=== PATIENT | female | born 1935 | race Caucasian/White ===

== ENCOUNTER 2017-08-22 11:22 | Inpatient (IN) | payer MEDICARE ==
[2017-08-22] MEDS ORDERED: Nitroglycerin TAB 0.4 MG* 0.4 MG TAB SL ONE (12:04)
--- NOTE | 2017-08-22 12:51 | RAD ---
INDICATION: Chest pain. COMPARISON: Comparison is made with a prior study from April 04, 2014. TECHNIQUE: A portable view of the chest was obtained. FINDINGS: Cardiac and mediastinal contours appear to be within normal limits. The lungs are clear. No pleural effusion is seen. IMPRESSION: NO EVIDENCE FOR ACUTE DISEASE.
[2017-08-22 12:58] LABS: ABS Basophils 0 10^3/ul (0-0.2); ABS Eosinophils 0 10^3/ul (0-0.6); ABS Lymphocytes 0.8 10^3/ul (1.0-4.8); ABS Monocytes 0.3 10^3/ul (0-0.8); ABS Neutrophils 4.1 10^3/ul (1.5-7.7); ABS Nucleated RBC 0 10^3/ul; Eosinophil % 0.6 % (0-6); Hematocrit 35 % (35-47); Hemoglobin 11.8 g/dl (12.0-16.0); Lymphocyte % 15.2 % (25-47); Mean Corpuscular HGB Conc 34 g/dl (31-36); Mean Corpuscular Hemoglobin 29 pg (27-31); Mean Corpuscular Volume 86 fL (80-97); Mean Platelet Volume 7.4 um3 (7.4-10.4); Nucleated Red Blood Cells % 0.2; Platelet Count 217 10^3/ul (150-450); Red Blood Count 4.05 10^6/ul (4.0-5.4); Red Cell Distribution Width 15 % (10.5-15); White Blood Count 5.3 10^3/ul (3.5-10.8)
[2017-08-22 13:07] LABS: EGFR Non-African American 57.2 (>60)
[2017-08-22 13:09] LABS: INR 0.86 (0.77-1.02)
[2017-08-22] MEDS ORDERED: Nitroglycerin TAB 0.4 MG* 0.4 MG TAB SL PRN ×2 (14:03→18:20)
[2017-08-22] MEDS ORDERED: Aspirin 81 mg CHEW TAB* 81 MG TAB.CHEW PO ONE (14:03)
[2017-08-22] MEDS ORDERED: Metoprolol Tartrate IV* 1 MG/ML 5 ML VIAL IV ONE (14:03)
[2017-08-22] MEDS ORDERED: Acetaminophen TAB* 325 MG PO PRN (14:06)
[2017-08-22] MEDS ORDERED: Mouth Piece, Nicotine* 1 EACH CARTRIDGE INH PRN (14:06)
[2017-08-22] MEDS ORDERED: Ondansetron INJ* 2 MG/ML VIAL IV PRN (14:06)
[2017-08-22] MEDS ORDERED: Famotidine TAB* 20 MG PO PRN (14:09)
[2017-08-22] MEDS ORDERED: Heparin DRIP 25,000 UNITS(*) 25,000 UNITS/500 ML BAG IV SCH (14:15)
[2017-08-22] MEDS ORDERED: Heparin VIAL(*) 5000 UNITS/ML VIAL (FIVE THOUSAND) IV SCH (15:00)
[2017-08-22] MEDS ORDERED: fentaNYL* 50 MCG/ML 2 ML VIAL (100 MCG VIAL) ONE (16:13)
[2017-08-22] MEDS ORDERED: Midazolam* 1 MG/ML 10 ML VIAL (10 MG) ONE (16:13)
[2017-08-22] MEDS ORDERED: nitroGLYCERIN DRIP* 25,000 MCG/250 ML BTL ONE ×2 (16:14→16:46)
[2017-08-22] MEDS ORDERED: Heparin 2 UNITS/ML IVPREMIX* 3,000 ML IV ONE (16:14)
[2017-08-22] MEDS ORDERED: Iodixanol* (CONTRAST) 320 MG/ML 100 ML SDV ONE ×3 (16:14→17:47)
[2017-08-22] MEDS ORDERED: Lidocaine 1% INJ* 10 MG/ML 30 ML SDV ONE (16:14)
[2017-08-22] MEDS ORDERED: VERAPAMIL 2.5 MG/ML 2 ML VIAL ** 5 mg/2 ml ONE (16:15)
[2017-08-22] MEDS ORDERED: Heparin(*) 1000 UNIT/ML 10 ML VIAL CATH LAB IV ONE (16:15)
--- NOTE | 2017-08-22 16:16 | ED ---
Darnell Michele Angela, scribed for Tucker Gonzalez on 08/22/17 at 1542 . Progress - Progress Note Progress Note: This pt was signed out by Dr. Amos, pending disposition, awaiting lab work. Blood work, chest XR, and EKG obtained. Chest XR is negative. Troponin is 0.58. EKG shows ST depressions. I discussed pt care with Dr. James, hospitalist, who has agreed to admit the pt. Dr. Patel consulted on the pt. Pt will be admitted to [facility] in stable condition. Re-Evaluation - Re-Evaluation First Eval Re-Evaluation Time: 13:26 Comment: I reviewed the lab results with the pt. Plan is to admit the pt. She understands and agrees Second Eval Comment: Dr. Patel, manager media relations, in to evaluate the pt. Course/Dx - Diagnoses Provider Diagnoses: NSTEMI (non-ST elevated myocardial infarction) - Provider Notifications Discussed Care Of Patient With: Cortez James Time Discussed With Above Provider: 13:27 Instructed by Provider To: Other - I discussed pt care with Dr. James, hospitalist, who has agreed to admit the pt. Discharge - Sign-Out/Discharge Documenting (check all that apply): Discharge/Admit/Transfer - admit to [facility] - Discharge Plan Condition: Stable Disposition: ADMITTED TO [facility] The documentation as recorded by the Darnell de la cruz Angela accurately reflects the service I personally performed and the decisions made by , Tucker Gonzalez.
--- NOTE | 2017-08-22 16:25 | ECHO ---
Patient: ERICKA TURNER [facility] Rec#: [id number] : 1935 Date: 08/22/2017 Age: 82y Height: 160.02 cm / 63.0 in Weight: 58.06 kg / 128.0 lbs Sex: F BSA: 1.6 Room#: 15 Admit Date#: 08/22/2017 Type: Inpatient Referring: Cortez James MD Reading: Micki Patel MD Group Home Counselor: Wendie Arthur,DORENECS,RDMS CC: Maxine Dunaway MD Transthoracic Echocardiogram Indication: Acute coronary syndrome BP: 124/51 HR: 77 Rhythm: NSR with PVCs Findings History: TIA, HTN, HLD, PCI, smoker Technical Comments: The study quality is fair. The study is technically limited due to poor parasternal windows. Left Ventricle: The left ventricular chamber size is normal. Mild concentric left ventricular hypertrophy is observed.The septum is relatively echo bright. There is a focal wall motion abnormality present.Relative hypokinesis of the inferior/posterior wall seen at 4-5 oclock on short axis view and mid was on 3 chamber view extending towards apex and base. The estimated ejection fraction is 50-55%. Abnormal left ventricular diastolic filling is observed, consistent with impaired relaxation. Left Atrium: The left atrial chamber size is normal. Right Ventricle: The right ventricular chamber size and systolic function are within normal limits. The right ventricle wall thickness is moderately increased. Right Atrium: The right atrial cavity size is normal. Aortic Valve: The aortic valve is trileaflet. The aortic valve leaflets are moderately thickened. There is mild to moderate aortic regurgitation. There is mild aortic stenosis. The mean gradient of the aortic valve is 7.5 mmHg. The aortic valve area, by peak velocities, is calculated at 1.9 cm2. The highest aortic valve velocity was obtained with the standard probe from the A5C view. Mitral Valve: There is mitral annular calcification. The mitral valve leaflets are mildly thickened. There is a trace of mitral regurgitation. There is no evidence of mitral stenosis. Tricuspid Valve: The tricuspid valve leaflets are normal. There is trace tricuspid regurgitation. Unable to estimate the right ventricular systolic pressure. Pulmonic Valve: The pulmonic valve structure is not well visualized. There is no evidence of pulmonic regurgitation. Pericardium: There is no significant pericardial effusion. Aorta: There is no dilatation of the aortic arch. The aortic root is not well visualized. Pulmonary Artery: The main pulmonary artery is not well visualized. Venous: The inferior vena cava appears normal in size. There is a greater than 50% respiratory change in the inferior vena cava dimension. Conclusions The study is technically limited due to poor parasternal windows. Mild concentric left ventricular hypertrophy is observed, septum is echo bright. Focal area of hypokinesis of the posterior wall, see text. The estimated ejection fraction is 50%. Abnormal left ventricular diastolic filling is observed, consistent with impaired relaxation. The right ventricle wall thickness is moderately increased. The right ventricular chamber size and systolic function are within normal limits. The aortic valve leaflets are moderately thickened. There is mild to moderate aortic regurgitation. There is mild aortic stenosis. The mean gradient of the aortic valve is 7.5 mmHg. There is a trace of mitral regurgitation. There is trace tricuspid regurgitation. Compared with prior echo report of 2014, wall motion abnormality is new. Measurements Name Value Normal Range RVDdMajor (2D) 2.5 cm (2.2 - 4.4) RAd ISD 4CH 4.3 cm (3.4 - 4.9) RA (A4C)W 3.7 cm (2.9 - 4.6) IVSd (2D) 1.1 cm (0.6 - 1) LVPWd (2D) 1.1 cm (0.6 - 1) LVIDd (2D) 3.5 cm (3.6 - 5.4) LVIDs (2D) 2.4 cm - LV FS (2D) 31 % (25 - 45) Aortic arch 2.1 cm (1.8 - 3.4) LA dimension (AP) 2D 3 cm (2.3 - 3.8) LAd ISD 4CH 4.9 cm (2.9 - 5.3) LA ISD 4CH W 4.1 cm (2.5 - 4.5) Name Value Normal Range LA ESV SP 4CH (A/L) 38.39 ml - LA ESV SP 2CH (A/L) 50.68 ml - LA ESV BP (A/L) 45.41 ml - LA ESV BP (A/L) index 28 ml/m2 - LA ESV SP 4CH (MOD) 36.72 ml - LA ESV SP 2CH (MOD) 48.14 ml - Name Value Normal Range MV E-wave Vmax 0.9 m/sec - MV deceleration time 184 msec - MV A-wave Vmax 1.1 m/sec - MV E:A ratio 0.8 ratio - P. vein S-wave Vmax 0.5 m/sec - P. vein D-wave Vmax 0.4 m/sec - P. vein S:D Vmax ratio 1.2 ratio - P. vein A-wave duration 111 msec - LV septal e' Vmax 0.07 m/sec - LV lateral e' Vmax 0.08 m/sec - LV E:e' septal ratio 13 ratio - LV E:e' lateral ratio 11 ratio - Name Value Normal Range AV Vmax 2 m/sec - AV VTI 40 cm - AV peak gradient 16 mmHg - AV mean gradient 7.5 mmHg - LVOT diameter 2 cm - LVOT Vmax 1.2 m/sec - LVOT VTI 27 cm - LVOT peak gradient 6 mmHg - LVOT mean gradient 3 mmHg - DOI (VTI) 0.7 ratio - TRAVIS (continuity Vmax) 1.9 cm2 - TRAVIS (continuity VTI) 2.1 cm2 - AR PHT 453.29 msec - AR peak gradient 51.53 mmHg - DAYANA Vmax 0.4 m/sec - Name Value Normal Range RAP 8 mmHg - IVC diameter 0.8 cm - Name Value Normal Range PV Vmax 0.9 m/sec - PV peak gradient 3.2 mmHg -
[2017-08-22] MEDS ORDERED: Ticagrelor* 90 MG TAB PO ONE (17:02)
--- NOTE | 2017-08-22 17:12 | HP ---
CC: Dr. Maxine Dunaway; Champ James MD* ADMISSION HISTORY AND PHYSICAL: DATE OF ADMISSION: 08/22/17. PRIMARY CARE PROVIDER: Dr. Maxine Dunaway. MY ATTENDING WHILE IN THE HOSPITAL: Champ James MD* (dictated by GHAZALA Mayen). CHIEF COMPLAINT: Chest pain. HISTORY OF PRESENT ILLNESS: Ms. Garsia is an 82-year-old female with past medical history significant for hypertension, hyperlipidemia, MS, status post stent in 2002, gastric cancer status post resection, who started having chest pain around 11:00 p.m. last night waking her up from sleep. She states this pain was a pressure in the center of her chest without associated symptoms. This lasted for approximately 2-1/2 hours, and since she was able to go back to bed, the patient woke up in the morning and felt fine. Patient took all of her morning medications. The patient takes her aspirin at night. The patient then started feeling the same pressure in the center of her chest with associated shortness of breath, nausea and vomiting. Around 11:00 a.m., patient called her son and was encouraged to go to the emergency department. The patient was driven in by her friend. The patient states this feels similar to her previous MS. The patient came to the emergency department, was given nitroglycerin which lead to a resolution of her chest pain. The patient had no recent change in her diet, fluid intake or medications. The patient's most recent medication change she can think of was 3 years ago. She was taken off her Plavix for a gastric resection due to cancer. The patient has had decrease in her exercise tolerance recently due to pain in her hip, but denies any shortness of breath on exertion, swelling in her lower extremities, orthopnea. The patient had bronchitis last month. No other recent illnesses. The patient had persistent cough since then. The patient is still an active smoker. She smokes approximately 3 cigarettes a day. The patient had weight loss after her gastric surgery, but her weight is now stable. The patient has not noticed any easy bruising. The patient has had an aching pain in her back, which is worse with prolonged sitting since a couple of days ago. In the emergency department, the patient had an EKG which showed anterior ST segment depression, which are new, but no ST segment elevation including an aVR. The patient is chest pain free. The patient's first troponin came back at 0.58 due to a concern for ST segment elevation myocardial infarction, we were asked to evaluate for admission. PAST MEDICAL HISTORY: 1. Hypertension. 2. Hyperlipidemia. 3. Coronary artery disease with stents and MS in 2002. 4. Anxiety with panic attacks. 5. CVA. 6. Gastric cancer. PAST SURGICAL HISTORY: Hysterectomy, cholecystectomy, gastric resection. MEDICATIONS: 1. Vitamin B12 100 mcg p.o. daily. 2. Aspirin 81 mg p.o. nightly. 3. Iron polysaccharide 100 mg p.o. daily. 4. Losartan 50 mg p.o. daily. 5. Famotidine 20 mg p.o. b.i.d. as needed. 6. Vitamin D3 5000 units p.o. daily. 7. Amlodipine 10 mg p.o. daily. 8. Potassium chloride 20 mEq p.o. daily. 9. Isosorbide 30 mg p.o. daily. 10. Rosuvastatin 5 mg p.o. daily. ALLERGIES: IODINE, SULFA and patient has an allergy listed to STATINS with joint achiness to some STATINS described as the adverse reaction. FAMILY HISTORY: The patient's mother had diabetes. The patient's father of complication of chronic kidney disease. The patient's father had heart failure and diabetes, both of them lived to be an old age. The patient had 6 siblings all of them healthy except for a brother who of bladder cancer and complications of IV. SOCIAL HISTORY: The patient smoked half of a pack a day since her teenage years and is an active smoker. The patient denies ever drinking alcohol. The patient has used no illicit drugs. The patient used to work at [employer]. The patient is and has 2 children. The patient's surrogate decision maker is likely either of her children, Gianfranco Garsia or Hyacinth Ramirez. REVIEW OF SYSTEMS: A 14-point review of systems was reviewed and is negative except as stated above in the HPI. PHYSICAL EXAMINATION GENERAL: The patient is an 82-year-old female who appears her stated age and is sitting in the bed unable to sit still likely due to anxiety. VITAL SIGNS: At time of evaluation, temperature 97.9, pulse rate 62, respiratory rate 16, oxygen saturation 98% on room air, blood pressure 137/72. HEENT: Head: Normocephalic, atraumatic. Sclerae anicteric. No conjunctival injection. Nasal mucosa moist. Oral mucosa moist. No pharyngeal erythema, discharge or exudate. NECK: Supple, nontender. No lymphadenopathy. No carotid bruits auscultated. No JVD. RESPIRATORY: Clear to auscultation bilaterally. No wheeze, rales or rhonchi. Good air exchange bilaterally. CARDIAC: Regular rate and rhythm. No clicks, murmurs, gallops or rubs. Pulses are 2+ in the bilateral dorsalis pedis, posterior tibialis and radial areas. No bilateral lower extremity edema noted. No calf tenderness. ABDOMEN: Soft, nontender and nondistended. Bowel sounds present and normoactive in all 4 quadrants. No hepatosplenomegaly. No abdominal bruits auscultated. Scars consistent with previous surgeries. GENITOURINARY: No suprapubic or CVA tenderness. NEUROLOGIC: Cranial nerves II through XII intact. No focal deficits. Alert and oriented x3. SKIN: Clean, dry and intact. No rash. PSYCHIATRIC: Pleasant and cooperative. LABORATORY DATA: White blood cell count 5.3, hemoglobin 11.8, hematocrit 35, platelet count 217. INR 0.86, APTT 27.3. Sodium 138, potassium 4.2, chloride 106, carbon dioxide 22, anion gap 10, BUN 23, creatinine 0.94. glucose 104, lactic acid 1.0, calcium 9.4, magnesium 2.1, bilirubin 0.3, AST 21, ALT 13, alkaline phosphatase 63, creatine kinase 88, CK-MB 10. Troponin-I 0.58. BNP 132. Total protein 7.5. Albumin 4.0, globulin 3.5. TSH 6.8. STUDIES DONE WHILE IN THE HOSPITAL: Electrocardiogram upon arrival to emergency department shows ST segment depression in V2, V3, V4 as well as II, III and aVF. Normal axis, no ST segment elevations, rate of 68, QTC of 481. Repeat pending. Chest x-ray shows no evidence of acute disease. ASSESSMENT AND PLAN/IMPRESSION: Ms. Garsia is an 82-year-old female with past medical history significant for hypertension, hyperlipidemia, previous myocardial infarction, gastric cancer status post gastric resection, who presents with 2 episodes of chest pain over the past 24 hours with an elevated troponin, ST-segment depressions. 1. Tka-PX-cknupso elevation myocardial infarction. The patient has an elevated troponin, EKG depressions. We will consult Cardiology. We will start the patient on heparin drip, keep patient on metoprolol tartrate IV. The patient has not had her aspirin since last night, we gave the patient aspirin now. The patient had received nitroglycerin already with resolution of her chest pain. We will have nitroglycerin available as needed for recurrent chest pain. The patient will be treated to eliminate chest pain. Cardiology will be consulted. The patient will likely need a cardiac catheterization. We will monitor closely in the ICU for deterioration. The patient is currently hemodynamically stable. The patient has a CHICO risk score of 7 indicating a 41 % risk at 14 days of all-cause mortality, new or recurrent myocardial infarction or severe recurrent ischemia, requiring urgent revascularization. We will order an echo. 2. Hypertension. The patient is currently normotensive. We will hold patient' s amlodipine due to a possibility of needing other blood pressure lowering drugs which have failed in this situation. We will continue patient's losartan , and Imdur. 3. Hyperlipidemia. Continue patient's rosuvastatin. We will update a lipid profile and treat accordingly. The patient is intolerant to some statins; however, rosuvastatin dose may be increased without issues. Her current CK is normal. 4. History of gastric cancer. The patient is on iron. The patient had a recent PET scan which showed no tumor activity. The patient has dark stools that are not tarry in the setting of taking iron. The patient will be anticoagulated with a heparin drip. A stool occult blood will be ordered and her hemoglobin and hematocrit will be monitored closely for signs of bleeding. 5. History of cerebrovascular accident. Continue aspirin. No signs of acute stroke. 6. Anxiety. Supportive care. 7. DVT prophylaxis. The patient is on heparin drip. 8. FEN. The patient will be n.p.o. at this time for the possibility of cardiac catheterization. 9. Code status. The patient would like to be a full code. The patient's surrogate decision maker is her son and daughter, as stated above. TIME SPENT: Approximately 60 minutes was spent on this admission, 30 of which was spent [id number] with the patient obtaining history and physical and discussing treatment plan. This plan was discussed with my attending Dr. Champ James, he is in agreement. GHAZALA MAYEN [id number]/[facility] #: [id number] LUIS ENRIQUE
[2017-08-22] MEDS ORDERED: Ondansetron INJ* 2 MG/ML VIAL ONE ×2 (17:13→17:35)
--- NOTE | 2017-08-22 17:21 | CONS ---
CC: Dr. Maxine Dunaway; Dr. Arben Rao in [place] CARDIOLOGY CONSULTATION: DATE OF CONSULT: 08/22/17 REASON FOR CONSULTATION: Chest pain, abnormal EKG, and elevated troponins. HISTORY OF PRESENT ILLNESS: The patient was seen in the presence of her daughter in the ED. The patient states she awoke from sleep about 11 o'clock last night with substernal chest discomfort. It resolved on its own and she felt fine this morning; however, when she went down to do some activities, it recurred. She had stents in the distant past and that pain was like someone was sitting on her chest, radiating to the arm. This pain is reminiscent of it, but without radiation and not as bad. Since being in the emergency department, she has become chest pain free with sublingual nitroglycerin, heparin drip and rest. The patient continues to smoke. She says she does not smoke very much, was not very specific. She had Plavix stopped quite a while ago when her stomach cancer was diagnosed, but otherwise she has had no adjustments in current medications. She cannot think of any particular stressors or changes in lifestyle that have happened recently. PAST MEDICAL HISTORY: The patient has a past medical history of: 1. Coronary artery disease with stents in 2002, this was in [place] and records not available. Most recent catheterization in 2005 at [facility] showing patent stents in the left circumflex and LAD, 60% occlusion of an OM branch, 90% occlusion of a nondominant right coronary artery and elevated left ventricular end-diastolic pressure of 17 mmHg. 2. Peripheral vascular disease with carotid stenosis in February 2017, 50% to 89% occlusion of the left internal carotid artery. 3. Dyslipidemia. 4. Hypertension. 5. COPD. 6. Tobacco abuse. 7. Multiple sclerosis diagnosed in 1969. 8. Stroke in 2013, left thalamic, non hemorrhagic. 9. Stomach cancer in 2014, adenocarcinoma, followed by Dr. Man and Dr. Guzman. PAST SURGICAL HISTORY: Includes: 1. Ulnar nerve surgery in 2011. 2. Gastric surgery in 2014 for her cancer. 3. Cholecystectomy at age 53. 4. Hysterectomy age 33. MEDICATIONS: Outpatient medications based on Dr. Dunaway's note included: 1. Aspirin 81 mg a day. 2. Benzonatate 100 mg 1 to 2 tabs p.o. t.i.d. p.r.n. 3. Clobetasol propionate 0.5%. 4. Crestor 5 mg a day. 5. Famotidine 20 mg b.i.d. p.r.n. 6. Ferrex 150 mg daily. 7. Isosorbide mononitrate 30 mg a day. 8. Losartan 50 mg a day. 9. Meloxicam mg a day. 10. Potassium chloride ER 20 mEq a day. 11. Prilosec OTC 20 mg a day. 12. Vitamin B12 100 mcg a day. 13. Vitamin D3 once a day. ALLERGIES: She is allergic to SULFA. FAMILY HISTORY: Positive for heart disease, diabetes, and cancer. SOCIAL HISTORY: The patient is now and retired. Lives in [address] in [place], has a supportive daughter in the area. Continues to smoke. No history of alcohol or recreational drug abuse. REVIEW OF SYSTEMS: Negative for recent fevers, chills, sweats. Good appetite. No change in bowel or bladder habits. No changes in medications. No orthopnea, no PND. She did mention that her right hip is arthritic and when she exerts herself, she will get pain in the lower extremities and has to stop. She is a bit vague whether it is muscular pain or arthritic pain. PHYSICAL EXAM: On exam, the patient is 5 feet 3 inches, weighs 128 pounds with a BMI of 23. Vital signs on arrival to the emergency department showed blood pressure 137/72 with a pulse of 80, oxygen saturation 98%. Currently, blood pressure 147/66, pulse of 78, respiratory rate is 22, oxygen saturation is 96% to 98%, and she has been afebrile. General Appearance: Petite elderly woman, lying at 20 degrees, appears comfortable, in no acute distress. Psychologically , pleasant and cooperative. Neurologically, awake, alert and oriented to person , place and time. Grossly normal sensory and motor function of the upper and lower extremities, examined in bed. Skin: Warm, dry without cyanosis or rashes. HEENT: Pupils were equal and round. Mucous membranes moist. Neck: Without increased JVP. Palpable carotid pulses bilaterally with a soft left- sided bruit. Lungs: Slight bronchial breath sounds, but overall good air movement and no rales. She had a mildly rhonchorous cough/smoker's cough. Coronary: S1, S2, regular. Soft systolic murmur in the upper sternal border. No diastolic murmurs. Abdomen: Flat, active bowel sounds, soft, nontender. No hepatosplenomegaly or masses. No audible bruits. Femoral pulses free of bruits. Distal extremities had palpable posterior tibial pulses, but diminished and warm. DIAGNOSTIC STUDIES/LAB DATA: A 12-lead ECG in the emergency room shows normal sinus rhythm, 68 beats per minute with [address] depression in the inferior leads II, III and aVF and mild ST depression in the precordial leads, V1, V2, V3 , extending to V4. Repeat ECG was when chest pain free just now shows normal sinus rhythm at 66 beats per minute with 2 PVCs in the 10-second strip, QRS axis -60, normal AV and IV conduction times. ST depression in the inferior leads is improved and nearly normalized in V3 through V5. Labs: Sodium 138, potassium 4.2, chloride 106, bicarb 22, BUN 23, creatinine 0.94, magnesium 2.1, ALT 13. Troponin #1 0.58, troponin #2 1.4. BNP of 132. TSH 6.8. INR 0.86, PTT 27.3. White count 5.3, hemoglobin 11.8, hematocrit 35, and platelets 217. Lipids from 03/28/17 showed total cholesterol 135, triglycerides 72, HDL cholesterol 52, and LDL cholesterol 69. Echo done today, posterior wall hypokinesis, mild to moderate AI, mild (wall motion abnormality is new c/w echo 2013). IMPRESSION AND PLAN: In summary, Kaylin Garsia is an 82-year-old woman with known atherosclerotic heart disease, peripheral vascular disease with a history of distant stents, stroke, presenting with unstable angina, non-Q wave myocardial infarction. I am not sure what the inciting issue is. Her EKG is improved and the patient is pain free, which are good signs, but her ECG is not back to baseline. She is at risk for in stent restenosis as well as progression in her [place] disease. I discussed the case with Dr Meneses interventional cardiology and the decision was made to take the patient to the lab systems analyst today. Regarding medical management, I agree with the heparin drip that has been initiated. She is on aspirin and I agree with continuation of Imdur and Cozaar and Crestor. I think she would benefit from addition of a low dose beta cande for cardiac protection as well. I strongly recommended complete smoking cessation of the patient in the presence of her daughter as well as part of stabilization. Additional recommendations will be made pending her clinical course, and results of her cath. [id number]/[facility] #: [id number] MTDD
[2017-08-22] MEDS ORDERED: NS 0.9% 1000 ML* 1,000 ML IV SCH (18:30)
[2017-08-22] MEDS: Metoprolol Succinate XL TAB* 25 MG PO SCH (19:59)
[2017-08-22] MEDS: Ticagrelor* 90 MG TAB PO SCH (20:50)
--- NOTE | 2017-08-22 20:52 | ED ---
Darnell Michele Angela, scribed for Boby Amos MD on 08/22/17 at 1208 . HPI Chest Pain - HPI Summary HPI Summary: This pt is a 82 y/o female presenting to [facility] c/o chest pain since last night. Pt reports she woke up at 23:00 last night with chest pain. She describes her pain as pressure and "someone sitting on top" of her chest. She additionally notes SOB. Pt currently rates her pain 8/10 in severity and describes it as nonradiating. Denies cough, abd pain, nausea, vomiting. PMHx includes heart murmur, RI, s/p 2 cardiac stents (last one in 2002). Pt's renal dietitian is Dr. Rao in [place], [place]. - History of Current Complaint Chief Complaint: EDChestPainROMI Time Seen by Provider: 08/22/17 11:44 Hx Obtained From: Patient Onset/Duration: Started Days Ago - 1, Still Present Timing: Lasting Days - 1 Current Severity: Severe Pain Intensity: 8 Pain Scale Used: 0-10 Numeric Chest Pain Location: Mid Sternal Chest Pain Radiates: No Character: Heaviness, Pressure/Squeezing - pressure Aggravating Factor(s): Nothing Alleviating Factor(s): Nothing Associated Signs and Symptoms: Positive: Chest Pain, Shortness of Breath. Negative: Fever, Cough, Vomiting - Allergy/Home Medications Allergies/Adverse Reactions: Allergies Allergy/AdvReac Type Severity Reaction Status Date / Time iodine Allergy Severe Difficulty Verified 08/22/17 14:56 Breathing Sulfa (Sulfonamide Allergy Severe Anaphylatic Verified 08/22/17 14:56 Antibiotics) Shock Kpchdoa-Lwl-Ugf Reductase AdvReac Mild Joint Verified 08/22/17 14:56 Inhibitor nachiness w/ some statins Home Medications: Home Medications Aspirin EC TAB* [Ecotrin EC Low Dose 81 MG*] 81 mg PO DAILY 08/22/17 [History Confirmed 08/22/17] Cholecalciferol CAP/TAB(NF) [Vitamin D3 CAP/TAB (NF)] 5,000 unit PO DAILY [History Confirmed 08/22/17] Cyanocobalamin TAB* [Vitamin B12 TAB*] 100 mcg PO DAILY 08/22/17 [History Confirmed 08/22/17] Famotidine TAB* [Pepcid 20 MG TAB*] 20 mg PO BID PRN 08/22/17 [History Confirmed 08/22/17] Iron Polysaccharide Complex [Ferrex 150] 150 mg PO DAILY 08/22/17 [History Confirmed 08/22/17] Isosorbide Mononitrate ER TAB* [Imdur ER TAB*] 30 mg PO DAILY 08/22/17 [History Confirmed 08/22/17] Losartan TAB* [Cozaar TAB*] 50 mg PO DAILY 08/22/17 [History Confirmed 08/22/17] Potassium Chlor TAB* [Klor Con ER TAB*] 20 meq PO DAILY 08/22/17 [History Confirmed 08/22/17] Rosuvastatin (NF) [Crestor (NF)] 5 mg PO DAILY 08/22/17 [History Confirmed 08/22] amLODIPine TAB* [Norvasc 5 mg TAB*] 10 mg PO DAILY 08/22/17 [History Confirmed 08/22/17] PMH/Surg Hx/FS Hx/Imm Hx Endocrine/Hematology History: Denies: Hx Diabetes, Hx Thyroid Disease Cardiovascular History: Reports: Hx Cardiac Arrest, Hx Coronary Artery Disease, Hx Hypertension, Hx Myocardial Infarction Denies: Hx Pacemaker/ICD Respiratory History: Denies: Hx Asthma, Hx Chronic Obstructive Pulmonary Disease (COPD) GI History: Reports: Hx Gall Bladder Disease, Hx Gastroesophageal Reflux Disease Denies: Hx Ulcer History: Denies: Hx Renal Disease Musculoskeletal History: Reports: Hx Arthritis Sensory History: Reports: Hx Contacts or Glasses Denies: Hx Hearing Aid Opthamlomology History: Reports: Hx Contacts or Glasses Psychiatric History: Denies: Hx Panic Disorder - Cancer History Cancer Type, Location and Year: stomach ca - 03/2015 Hx Chemotherapy: No Hx Radiation Therapy: No - Surgical History Surgery Procedure, Year, and Place: 2003 cardiac stents -[place] - (NO STENT INFORMATION- SCANNED PREV AT [facility] [place] FOR MRI 1.5T ONLY PER DR STREET). nathaly;. hysterectomy;. elbow left arm nerve surgery ,. 03/2015 1/3 OF STOMACH REMOVED FOR CANCEROUS ULCER Infectious Disease History: No Infectious Disease History: Denies: Hx Hepatitis, Hx Human Immunodeficiency Virus (HIV), History Other Infectious Disease, Traveled Outside the [place] in Last 30 Days - Family History Known Family History: Positive: Hypertension, Diabetes - Social History Alcohol Use: Rare Substance Use Type: Reports: None Hx Tobacco Use: Yes Smoking Status (MU): Former Smoker Type: Cigarettes Have You Smoked in the Last Year: Yes Review of Systems Negative: Fever Positive: Chest Pain Positive: Shortness Of Breath. Negative: Cough Negative: Abdominal Pain, Vomiting, Nausea Skin: Negative Neurological: Negative All Other Systems Reviewed And Are Negative: Yes Physical Exam - Summary Physical Exam Summary: VITAL SIGNS: Reviewed. GENERAL: Patient is a well-developed and nourished female who is lying comfortable in the stretcher. Patient is not in any acute respiratory distress. HEAD AND FACE: No signs of trauma. No ecchymosis, hematomas or skull depressions. No sinus tenderness. EYES: PERRLA, EOMI x 2, No injected conjunctiva, no nystagmus. EARS: Hearing grossly intact. Ear canals and tympanic membranes are within normal limits. MOUTH: Oropharynx within normal limits. NECK: Supple, trachea is midline, no adenopathy, no JVD, no carotid bruit, no c- spine tenderness, neck with full ROM. CHEST: Symmetric, reproducible chest tenderness on palpation. LUNGS: Clear to auscultation bilaterally. No wheezing or crackles. CVS: Regular rate and rhythm, S1 and S2 present, no murmurs or gallops appreciated. ABDOMEN: Soft, non-tender. No signs of distention. No rebound no guarding, and no masses palpated. Bowel sounds are normal. EXTREMITIES: FROM in all major joints, no edema, no cyanosis or clubbing. NEURO: Alert and oriented x 3. No acute neurological deficits. Speech is normal and follows commands. SKIN: Dry and warm Triage Information Reviewed: Yes Vital Signs On Initial Exam: Initial Vitals Temp Pulse Resp BP Pulse Ox 97.9 F 80 16 137/72 98 08/22/17 11:22 08/22/17 11:22 08/22/17 11:22 08/22/17 11:22 08/22/17 11:22 Vital Signs Reviewed: Yes Diagnostics - Vital Signs Vital Signs Temp Pulse Resp BP Pulse Ox 08/22/17 11:22 97.9 F 80 16 137/72 98 - Laboratory Lab Results: Lab Results 08/22/17 08/22/17 08/22/17 Range/Units 12:30 12:30 12:30 WBC 5.3 (3.5-10.8) 10^3/ul RBC 4.05 (4.0-5.4) 10^6/ul Hgb 11.8 L (12.0-16.0) g/dl Hct 35 (35-47) % MCV 86 (80-97) fL MCH 29 (27-31) pg MCHC 34 (31-36) g/dl RDW 15 (10.5-15) % Plt Count 217 (150-450) 10^3/ul MPV 7.4 (7.4-10.4) um3 Neut % (Auto) 77.2 (38-83) % Lymph % (Auto) 15.2 L (25-47) % Berrien % (Auto) 6.4 (0-7) % Eos % (Auto) 0.6 (0-6) % Baso % (Auto) 0.6 (0-2) % Absolute Neuts (auto) 4.1 (1.5-7.7) 10^3/ul Absolute Lymphs (auto) 0.8 L (1.0-4.8) 10^3/ul Absolute Monos (auto) 0.3 (0-0.8) 10^3/ul Absolute Eos (auto) 0 (0-0.6) 10^3/ul Absolute Basos (auto) 0 (0-0.2) 10^3/ul Absolute Nucleated RBC 0 10^3/ul Nucleated RBC % 0.2 INR (Anticoag Therapy) (0.77-1.02) APTT (26.0-36.3) seconds Sodium 138 L (139-145) mmol/L Potassium 4.2 (3.5-5.0) mmol/L Chloride 106 (101-111) mmol/L Carbon Dioxide 22 (22-32) mmol/L Anion Gap 10 (2-11) mmol/L BUN 23 (6-24) mg/dL Creatinine 0.94 (0.51-0.95) mg/dL Est GFR ( Amer) 73.5 (>60) Est GFR (Non-Af Amer) 57.2 (>60) BUN/Creatinine Ratio 24.5 H (8-20) Glucose 104 H (70-100) mg/dL Hemoglobin A1c (4.0-5.6) % Lactic Acid (0.5-2.0) mmol/L Calcium 9.4 (8.6-10.3) mg/dL Magnesium 2.1 (1.9-2.7) mg/dL Total Bilirubin 0.30 (0.2-1.0) mg/dL AST 21 (13-39) U/L ALT 13 (7-52) U/L Alkaline Phosphatase 66 (34-104) U/L Total Creatine Kinase 88 (10-223) U/L CK-MB (CK-2) 10.0 H (0.6-6.3) ng/mL Troponin I 0.58 H* (<0.04) ng/mL B-Natriuretic Peptide 132 H ( - 100) pg/mL Total Protein 7.5 (6.4-8.9) g/dL Albumin 4.0 (3.2-5.2) g/dL Globulin 3.5 (2-4) g/dL Albumin/Globulin Ratio 1.1 (1-3) TSH (0.34-5.60) mcIU/mL 08/22/17 08/22/17 08/22/17 Range/Units 12:30 12:30 12:30 WBC (3.5-10.8) 10^3/ul RBC (4.0-5.4) 10^6/ul Hgb (12.0-16.0) g/dl Hct (35-47) % MCV (80-97) fL MCH (27-31) pg MCHC (31-36) g/dl RDW (10.5-15) % Plt Count (150-450) 10^3/ul MPV (7.4-10.4) um3 Neut % (Auto) (38-83) % Lymph % (Auto) (25-47) % Berrien % (Auto) (0-7) % Eos % (Auto) (0-6) % Baso % (Auto) (0-2) % Absolute Neuts (auto) (1.5-7.7) 10^3/ul Absolute Lymphs (auto) (1.0-4.8) 10^3/ul Absolute Monos (auto) (0-0.8) 10^3/ul Absolute Eos (auto) (0-0.6) 10^3/ul Absolute Basos (auto) (0-0.2) 10^3/ul Absolute Nucleated RBC 10^3/ul Nucleated RBC % INR (Anticoag Therapy) 0.86 (0.77-1.02) APTT 27.3 (26.0-36.3) seconds Sodium (139-145) mmol/L Potassium (3.5-5.0) mmol/L Chloride (101-111) mmol/L Carbon Dioxide (22-32) mmol/L Anion Gap (2-11) mmol/L BUN (6-24) mg/dL Creatinine (0.51-0.95) mg/dL Est GFR ( Amer) (>60) Est GFR (Non-Af Amer) (>60) BUN/Creatinine Ratio (8-20) Glucose (70-100) mg/dL Hemoglobin A1c (4.0-5.6) % Lactic Acid 1.0 (0.5-2.0) mmol/L Calcium (8.6-10.3) mg/dL Magnesium (1.9-2.7) mg/dL Total Bilirubin (0.2-1.0) mg/dL AST (13-39) U/L ALT (7-52) U/L Alkaline Phosphatase (34-104) U/L Total Creatine Kinase (10-223) U/L CK-MB (CK-2) (0.6-6.3) ng/mL Troponin I (<0.04) ng/mL B-Natriuretic Peptide ( - 100) pg/mL Total Protein (6.4-8.9) g/dL Albumin (3.2-5.2) g/dL Globulin (2-4) g/dL Albumin/Globulin Ratio (1-3) TSH 6.80 H (0.34-5.60) mcIU/mL 08/22/17 Range/Units 12:30 WBC (3.5-10.8) 10^3/ul RBC (4.0-5.4) 10^6/ul Hgb (12.0-16.0) g/dl Hct (35-47) % MCV (80-97) fL MCH (27-31) pg MCHC (31-36) g/dl RDW (10.5-15) % Plt Count (150-450) 10^3/ul MPV (7.4-10.4) um3 Neut % (Auto) (38-83) % Lymph % (Auto) (25-47) % Berrien % (Auto) (0-7) % Eos % (Auto) (0-6) % Baso % (Auto) (0-2) % Absolute Neuts (auto) (1.5-7.7) 10^3/ul Absolute Lymphs (auto) (1.0-4.8) 10^3/ul Absolute Monos (auto) (0-0.8) 10^3/ul Absolute Eos (auto) (0-0.6) 10^3/ul Absolute Basos (auto) (0-0.2) 10^3/ul Absolute Nucleated RBC 10^3/ul Nucleated RBC % INR (Anticoag Therapy) (0.77-1.02) APTT (26.0-36.3) seconds Sodium (139-145) mmol/L Potassium (3.5-5.0) mmol/L Chloride (101-111) mmol/L Carbon Dioxide (22-32) mmol/L Anion Gap (2-11) mmol/L BUN (6-24) mg/dL Creatinine (0.51-0.95) mg/dL Est GFR ( Amer) (>60) Est GFR (Non-Af Amer) (>60) BUN/Creatinine Ratio (8-20) Glucose (70-100) mg/dL Hemoglobin A1c 6.3 H (4.0-5.6) % Lactic Acid (0.5-2.0) mmol/L Calcium (8.6-10.3) mg/dL Magnesium (1.9-2.7) mg/dL Total Bilirubin (0.2-1.0) mg/dL AST (13-39) U/L ALT (7-52) U/L Alkaline Phosphatase (34-104) U/L Total Creatine Kinase (10-223) U/L CK-MB (CK-2) (0.6-6.3) ng/mL Troponin I (<0.04) ng/mL B-Natriuretic Peptide ( - 100) pg/mL Total Protein (6.4-8.9) g/dL Albumin (3.2-5.2) g/dL Globulin (2-4) g/dL Albumin/Globulin Ratio (1-3) TSH (0.34-5.60) mcIU/mL Result Diagrams: 08/22/17 12:30 08/22/17 12:30 Lab Statement: Any lab studies that have been ordered have been reviewed, and results considered in the medical decision making process. - Radiology Chest XR Xray Interpretation: No Acute Changes - IMPRESSION: No evidence for acute disease. Dr. Amos has reviewed this radiology report. Radiology Interpretation Completed By: Radiologist - EKG 11:23 Cardiac Rate: NL EKG Rhythm: Sinus Rhythm - at 68 bpm EKG Interpretation: No ST elevations. ST depressions in leads I, II, III, aVF, V2-V5. EKG Comparison: Other - different from prior EKG on 04/04/14. Chest Pain Course/Dx - Course Assessment/Plan: This pt is a 82 y/o female presenting to [facility] c/o chest pain since last night. Pt reports she woke up at 23:00 last night with chest pain. She describes her pain as pressure and "someone sitting on top" of her chest. She additionally notes SOB. Pt currently rates her pain 8/10 in severity and describes it as nonradiating. Denies cough, abd pain, nausea, vomiting. PMHx includes heart murmur, RI, s/p 2 cardiac stents (last one in 2002). Pt's renal dietitian is Dr. Rao in [place], [place]. Chest XR shows no evidence for acute disease. EKG shows sinus rhythm with ST depression in leads I, II, III, aVF, V2-V5, and no ST elevations. EKG is different from previous EKGs. In the ED course the pt was given Aspirin and nitroglycerin. Held beta blooker since symptoms improved. At this point test results are still pending therefore pt will be signed out. The pt will be signed out to Dr. Gonzalez for further work up and management, and disposition. Pt is currently hemodynamically stable, alert and oriented x3. - Chest Pain Differential Diagnosis/HQI/PQRI: Acute RI, ACS, Angina, CHF, Chest Wall, GI Disease, Lower Respiratory Infection - Diagnoses Provider Diagnoses: NSTEMI (non-ST elevated myocardial infarction) Discharge - Sign-Out/Discharge Documenting (check all that apply): Sign-Out Patient Signing out patient TO: Tucker Gonzalez - Discharge Plan Condition: Stable Disposition: ADMITTED TO [facility] Discharge Disposition Comment: signed out to Dr. Gonzalez, pending dispo, awaiting lab work - Billing Disposition and Condition Condition: STABLE The documentation as recorded by the Darnell de la cruz Angela accurately reflects the service I personally performed and the decisions made by me, Boby Amos MD.
[2017-08-22 22:02] LABS: Urine Appearance Clear; Urine Blood Negative (Negative); Urine Color Yellow; Urine Ketones Negative (Negative); Urine Protein Negative (Negative); Urine Specific Gravity > 1.060 (1.010-1.030); Urine Urobilinogen Negative (Negative)
--- NOTE | 2017-08-22 22:17 | CONS ---
CONSULTATION NOTE: DATE OF CONSULT: 08/22/17 CHIEF COMPLAINT: Right forearm swelling status post percutaneous coronary intervention with radial artery access site. HISTORY OF PRESENT ILLNESS: Kaylin is 82. She was admitted with substernal chest discomfort. There was concern for a cardiac etiology based on the workup. She underwent percutaneous coronary intervention by Dr. Meneses earlier today when he withdrew the catheter. Shortly thereafter, she began to have more swelling in the proximal right forearm. There was not a lot of pain or discomfort associated with this. He had used heparin during the procedure. He considered giving protamine, but held off on that. He cycled the tourniquet several times in an effort to obtain hemostasis due to concern for radial artery perforation. There was a compression device placed over the access site where the radial artery was cannulated. The hand throughout this has maintained pink and warm, as long as the tourniquet was not up and overall the pain has been very minimal in the forearm. She is not a diabetic. She reports no other issues with the arm. There is no numbness or tingling in the hand. PAST MEDICAL HISTORY: 1. Coronary artery disease. 2. Peripheral vascular disease and carotid stenosis. 3. Dyslipidemia. 4. Hypertension. 5. COPD. 6. Tobacco abuse. 7. Multiple sclerosis. 8. History of stroke in 2013. 9. Stomach cancer in 2015, adenocarcinoma. PAST SURGICAL HISTORY: 1. Ulnar nerve surgery in 2011. 2. Gastric surgery in 2015 for the cancer. 3. Cholecystectomy and hysterectomy. MEDICATIONS: She is currently on: 1. Aspirin 81 mg. 2. She was on a heparin drip. 3. Isosorbide mononitrate. 4. Losartan. 5. Metoprolol XL. 6. Nitroglycerin. 7. Zofran. 8. Potassium chloride. 9. Rosuvastatin. 10. Ticagrelor. ALLERGIES: IODINE, SULFA. FAMILY HISTORY: Positive for heart disease, diabetes and cancer. No history of bleeding disorders. SOCIAL HISTORY: She is . She lives in [address] in [place]. She is a smoker. No significant drug or alcohol use. REVIEW OF SYSTEMS: A full review of systems was conducted. Positive for the aforementioned chest discomfort and no real issues with the arm. PHYSICAL EXAM: Her temperature is 98.7, pulse is 73, blood pressure is 103/83, respiratory rate 18, saturating 94% on room air. General: Awake and alert. No distress. Skin: There is just a bit of bruising in the volar aspect of the mid distal forearm. Otherwise, there is a puncture site seen under the compression device over the radial artery down in the distal forearm/wrist area. There are no other lesions. Musculoskeletal: She has full active and passive range of motion in the fingers with no pain. The wrist motion is present but limited due to the compression device. There is no pain with that. The elbow has full painless motion without pain. The shoulder moves nicely as well. The forearm is swollen but compressible. There is not really any discomfort with compression of the proximal forearm. The hand is warm and well perfused. Light touch sensation is present on the radial and ulnar aspect of all the digits. DIAGNOSTIC STUDIES/LAB DATA: Her INR on admission was 0.86. PTT was 27.3. Her most recent hemoglobin A1c is 6.3 done here in the hospital. Her H and H is 11.8 and 35. Imaging: There have been no x-rays of the area. IMPRESSION: Status post radial artery cannulation for access for percutaneous coronary intervention earlier today that went uneventfully per Dr. Meneses with some concern for radial artery perforation after the wire and catheter had been removed due to some swelling in the proximal forearm. Currently the arm is compressible with minimal discomfort. She is not in any pain. She is not a diabetic and has no significant neuropathy to blunt her pain response. She has no pain with passive or active motion. I think the concern for compartment syndrome here is pretty low. It does not seem to be getting more tense over the last hour or so. PLAN: I would recommend observation. We will observe her overnight. They have my phone number, they can call me if her clinical condition changes. I will check on her again in the morning and follow her through to make sure this does not become an issue, but overall I think she will do alright with this. I will continue to follow and assist in her care. [id number]/[facility] #: [id number] LUIS ENRIQUE
[2017-08-23 02:55] LABS: ABS Basophils 0 10^3/ul (0-0.2); ABS Eosinophils 0 10^3/ul (0-0.6); ABS Lymphocytes 0.9 10^3/ul (1.0-4.8); ABS Monocytes 0.4 10^3/ul (0-0.8); ABS Neutrophils 4.8 10^3/ul (1.5-7.7); ABS Nucleated RBC 0 10^3/ul; Eosinophil % 0.5 % (0-6); Hematocrit 33 % (35-47); Hemoglobin 10.9 g/dl (12.0-16.0); Lymphocyte % 14.2 % (25-47); Mean Corpuscular HGB Conc 33 g/dl (31-36); Mean Corpuscular Hemoglobin 29 pg (27-31); Mean Corpuscular Volume 87 fL (80-97); Mean Platelet Volume 7.3 um3 (7.4-10.4); Nucleated Red Blood Cells % 0; Platelet Count 193 10^3/ul (150-450); Red Blood Count 3.79 10^6/ul (4.0-5.4); Red Cell Distribution Width 15 % (10.5-15); White Blood Count 6.1 10^3/ul (3.5-10.8)
[2017-08-23 03:08] LABS: EGFR Non-African American 69.8 (>60)
[2017-08-23] MEDS: CMCS: Rosuvastatin (NF) 5 MG TAB PO SCH (07:27)
[2017-08-23] MEDS: Ticagrelor* 90 MG TAB PO SCH ×2 (07:27→22:03)
[2017-08-23] MEDS: Isosorbide Mononitrate ER TAB* 30 MG PO SCH (07:28)
[2017-08-23] MEDS: Potassium Chlor TAB* 20 MEQ TAB.ER PO SCH (07:28)
[2017-08-23] MEDS: Losartan TAB* 25 MG PO SCH (07:28)
[2017-08-23] MEDS: Metoprolol Succinate XL TAB* 25 MG PO SCH (07:28)
[2017-08-23] MEDS: Aspirin 81 mg CHEW TAB* 81 MG TAB.CHEW PO SCH (07:28)
[2017-08-23] MEDS ORDERED: Aspirin EC TAB* 81 MG TAB.EC PO SCH (09:00)
[2017-08-23] MEDS: Nicotine Inhaler* 10 MG AMP INH PRN (09:35)
--- NOTE | 2017-08-23 14:52 | PN ---
Subjective Date of Service: 08/23/17 Interval History: Pt has not had any CP since her admission. R arm issues post cath, now with mild ecchymosis, no pain reported Objective Active Medications: Acetaminophen (Tylenol Tab*) 650 mg PO Q6H PRN PRN Reason: FEVER/PAIN Aspirin (Aspirin 81 Mg Chew Tab*) 81 mg PO DAILY [facility] Last Admin: 08/23/17 07:28 Dose: 81 mg Device (Nicotine Mouth Piece*) 1 each INH .USE WITH NICOTROL PRN PRN Reason: CRAVING Last Admin: 08/23/17 09:35 Dose: 1 each Famotidine (Pepcid Tab*) 20 mg PO BID PRN PRN Reason: INDIGESTION Last Admin: 08/22/17 14:32 Dose: 20 mg Isosorbide Mononitrate (Imdur Er Tab*) 30 mg PO DAILY [facility] Last Admin: 08/23/17 07:28 Dose: 30 mg Losartan Potassium (Cozaar Tab*) 50 mg PO DAILY [facility] Last Admin: 08/23/17 07:28 Dose: 50 mg Metoprolol Succinate (Toprol Xl Tab*) 25 mg PO DAILY [facility] Last Admin: 08/23/17 07:28 Dose: 25 mg Nicotine (Nicotine Inhaler*) 10 mg INH Q2H PRN PRN Reason: CRAVING Last Admin: 08/23/17 09:35 Dose: 10 mg Nitroglycerin (Nitroglycerin Tab 0.4 Mg*) 0.4 mg SL Q5M PRN PRN Reason: ANGINA Nitroglycerin (Nitroglycerin Tab 0.4 Mg*) 0.4 mg SL Q5M PRN PRN Reason: ANGINA Ondansetron HCl (Zofran Inj*) 4 mg IV Q6H PRN PRN Reason: NAUSEA Potassium Chloride (Klor Con Er Tab*) 20 meq PO DAILY [facility] Last Admin: 08/23/17 07:28 Dose: 20 meq Rosuvastatin Calcium (Crestor (Nf)) 5 mg PO DAILY [facility] PRN Reason: Protocol Last Admin: 08/23/17 07:27 Dose: 5 mg Ticagrelor (Brilinta*) 90 mg PO BID [facility] Last Admin: 08/23/17 07:27 Dose: 90 mg Vital Signs - 8 hr 08/23/17 08/23/17 08/23/17 07:00 07:01 08:00 Temperature 98.4 F Pulse Rate 59 55 50 Respiratory 21 20 18 Rate Blood Pressure 124/88 (mmHg) O2 Sat by Pulse 90 91 93 Oximetry 08/23/17 08/23/17 08/23/17 08:01 09:00 09:55 Temperature Pulse Rate 51 53 Respiratory 15 19 20 Rate Blood Pressure 110/51 (mmHg) O2 Sat by Pulse 94 94 Oximetry 08/23/17 08/23/17 08/23/17 10:00 10:01 11:00 Temperature Pulse Rate 60 60 50 Respiratory 21 21 20 Rate Blood Pressure 116/77 101/40 (mmHg) O2 Sat by Pulse 94 94 95 Oximetry 08/23/17 08/23/17 08/23/17 12:00 12:11 13:00 Temperature 98.4 F Pulse Rate 55 57 Respiratory 26 18 Rate Blood Pressure (mmHg) O2 Sat by Pulse 96 92 Oximetry 08/23/17 14:00 Temperature Pulse Rate 57 Respiratory 17 Rate Blood Pressure (mmHg) O2 Sat by Pulse 94 Oximetry Oxygen Devices in Use Now: None Appearance: 82 yo F in nAD, AAOx3 Eyes: No Scleral Icterus, PERRLA Ears/Nose/Mouth/Throat: NL Teeth, Lips, Gums, Mucous Membranes Moist Neck: NL Appearance and Movements; NL JVP Respiratory: Symmetrical Chest Expansion and Respiratory Effort, Clear to Auscultation Cardiovascular: NL Sounds; No Murmurs; No JVD, RRR Abdominal: NL Sounds; No Tenderness; No Distention Lymphatic: No Cervical Adenopathy Extremities: No Clubbing, Cyanosis, - - good radial pulses b/l Skin: No Nodules or Sclerosis, - - r wrist ecchymosis Neurological: Alert and Oriented x 3, NL Muscle Strength and Tone Result Diagrams: 08/23/17 02:45 08/23/17 02:45 Additional Lab and Data: Lab Results 08/22/17 08/22/17 08/22/17 Range/Units 12:30 12:30 12:30 WBC 5.3 (3.5-10.8) 10^3/ul RBC 4.05 (4.0-5.4) 10^6/ul Hgb 11.8 L (12.0-16.0) g/dl Hct 35 (35-47) % MCV 86 (80-97) fL MCH 29 (27-31) pg MCHC 34 (31-36) g/dl RDW 15 (10.5-15) % Plt Count 217 (150-450) 10^3/ul MPV 7.4 (7.4-10.4) um3 Neut % (Auto) 77.2 (38-83) % Lymph % (Auto) 15.2 L (25-47) % [place] % (Auto) 6.4 (0-7) % Eos % (Auto) 0.6 (0-6) % Baso % (Auto) 0.6 (0-2) % Absolute Neuts (auto) 4.1 (1.5-7.7) 10^3/ul Absolute Lymphs (auto) 0.8 L (1.0-4.8) 10^3/ul Absolute Monos (auto) 0.3 (0-0.8) 10^3/ul Absolute Eos (auto) 0 (0-0.6) 10^3/ul Absolute Basos (auto) 0 (0-0.2) 10^3/ul Absolute Nucleated RBC 0 10^3/ul Nucleated RBC % 0.2 INR (Anticoag Therapy) (0.77-1.02) APTT (26.0-36.3) seconds Sodium 138 L (139-145) mmol/L Potassium 4.2 (3.5-5.0) mmol/L Chloride 106 (101-111) mmol/L Carbon Dioxide 22 (22-32) mmol/L Anion Gap 10 (2-11) mmol/L BUN 23 (6-24) mg/dL Creatinine 0.94 (0.51-0.95) mg/dL Est GFR ( Amer) 73.5 (>60) Est GFR (Non-Af Amer) 57.2 (>60) BUN/Creatinine Ratio 24.5 H (8-20) Glucose 104 H (70-100) mg/dL Hemoglobin A1c (4.0-5.6) % Lactic Acid (0.5-2.0) mmol/L Calcium 9.4 (8.6-10.3) mg/dL Magnesium 2.1 (1.9-2.7) mg/dL Total Bilirubin 0.30 (0.2-1.0) mg/dL AST 21 (13-39) U/L ALT 13 (7-52) U/L Alkaline Phosphatase 66 (34-104) U/L Total Creatine Kinase 88 (10-223) U/L CK-MB (CK-2) 10.0 H (0.6-6.3) ng/mL Troponin I 0.58 H* (<0.04) ng/mL B-Natriuretic Peptide 132 H ( - 100) pg/mL Total Protein 7.5 (6.4-8.9) g/dL Albumin 4.0 (3.2-5.2) g/dL Globulin 3.5 (2-4) g/dL Albumin/Globulin Ratio 1.1 (1-3) TSH (0.34-5.60) mcIU/mL 08/22/17 08/22/17 08/22/17 Range/Units 12:30 12:30 12:30 WBC (3.5-10.8) 10^3/ul RBC (4.0-5.4) 10^6/ul Hgb (12.0-16.0) g/dl Hct (35-47) % MCV (80-97) fL MCH (27-31) pg MCHC (31-36) g/dl RDW (10.5-15) % Plt Count (150-450) 10^3/ul MPV (7.4-10.4) um3 Neut % (Auto) (38-83) % Lymph % (Auto) (25-47) % [place] % (Auto) (0-7) % Eos % (Auto) (0-6) % Baso % (Auto) (0-2) % Absolute Neuts (auto) (1.5-7.7) 10^3/ul Absolute Lymphs (auto) (1.0-4.8) 10^3/ul Absolute Monos (auto) (0-0.8) 10^3/ul Absolute Eos (auto) (0-0.6) 10^3/ul Absolute Basos (auto) (0-0.2) 10^3/ul Absolute Nucleated RBC 10^3/ul Nucleated RBC % INR (Anticoag Therapy) 0.86 (0.77-1.02) APTT 27.3 (26.0-36.3) seconds Sodium (139-145) mmol/L Potassium (3.5-5.0) mmol/L Chloride (101-111) mmol/L Carbon Dioxide (22-32) mmol/L Anion Gap (2-11) mmol/L BUN (6-24) mg/dL Creatinine (0.51-0.95) mg/dL Est GFR ( Amer) (>60) Est GFR (Non-Af Amer) (>60) BUN/Creatinine Ratio (8-20) Glucose (70-100) mg/dL Hemoglobin A1c (4.0-5.6) % Lactic Acid 1.0 (0.5-2.0) mmol/L Calcium (8.6-10.3) mg/dL Magnesium (1.9-2.7) mg/dL Total Bilirubin (0.2-1.0) mg/dL AST (13-39) U/L ALT (7-52) U/L Alkaline Phosphatase (34-104) U/L Total Creatine Kinase (10-223) U/L CK-MB (CK-2) (0.6-6.3) ng/mL Troponin I (<0.04) ng/mL B-Natriuretic Peptide ( - 100) pg/mL Total Protein (6.4-8.9) g/dL Albumin (3.2-5.2) g/dL Globulin (2-4) g/dL Albumin/Globulin Ratio (1-3) TSH 6.80 H (0.34-5.60) mcIU/mL 08/22/17 Range/Units 12:30 WBC (3.5-10.8) 10^3/ul RBC (4.0-5.4) 10^6/ul Hgb (12.0-16.0) g/dl Hct (35-47) % MCV (80-97) fL MCH (27-31) pg MCHC (31-36) g/dl RDW (10.5-15) % Plt Count (150-450) 10^3/ul MPV (7.4-10.4) um3 Neut % (Auto) (38-83) % Lymph % (Auto) (25-47) % [place] % (Auto) (0-7) % Eos % (Auto) (0-6) % Baso % (Auto) (0-2) % Absolute Neuts (auto) (1.5-7.7) 10^3/ul Absolute Lymphs (auto) (1.0-4.8) 10^3/ul Absolute Monos (auto) (0-0.8) 10^3/ul Absolute Eos (auto) (0-0.6) 10^3/ul Absolute Basos (auto) (0-0.2) 10^3/ul Absolute Nucleated RBC 10^3/ul Nucleated RBC % INR (Anticoag Therapy) (0.77-1.02) APTT (26.0-36.3) seconds Sodium (139-145) mmol/L Potassium (3.5-5.0) mmol/L Chloride (101-111) mmol/L Carbon Dioxide (22-32) mmol/L Anion Gap (2-11) mmol/L BUN (6-24) mg/dL Creatinine (0.51-0.95) mg/dL Est GFR ( Amer) (>60) Est GFR (Non-Af Amer) (>60) BUN/Creatinine Ratio (8-20) Glucose (70-100) mg/dL Hemoglobin A1c 6.3 H (4.0-5.6) % Lactic Acid (0.5-2.0) mmol/L Calcium (8.6-10.3) mg/dL Magnesium (1.9-2.7) mg/dL Total Bilirubin (0.2-1.0) mg/dL AST (13-39) U/L ALT (7-52) U/L Alkaline Phosphatase (34-104) U/L Total Creatine Kinase (10-223) U/L CK-MB (CK-2) (0.6-6.3) ng/mL Troponin I (<0.04) ng/mL B-Natriuretic Peptide ( - 100) pg/mL Total Protein (6.4-8.9) g/dL Albumin (3.2-5.2) g/dL Globulin (2-4) g/dL Albumin/Globulin Ratio (1-3) TSH (0.34-5.60) mcIU/mL Microbiology and Other Data: Microbiology 08/22/17 16:15 Nasal Screen MRSA (PCR)([facility]) - Final Nasal Mrsa Not Detected Assess/Plan/Problems-Billing Assessment: 82 yo F with h/o CAD, presented with NSTEMI. H/o adenocarcinoma of stomach, HTN, CAD (stents in 2012) - Patient Problems (1) NSTEMI (non-ST elevated myocardial infarction) Comment: s/p stent x 1 on 06/24/17 cont ASA, Brilinta, lopressor (2) HTN (hypertension) Comment: controlled with imdur, lopressor, losartan. holding Norvasc (3) Dyslipidemia Comment: LDL 56, cont rosuvastatin (4) DVT prophylaxis Comment: heparin sc Status and Disposition: Inpatient
--- NOTE | 2017-08-23 17:34 | PN ---
Progress Note - Progress Note Date of Service: 08/23/17 SOAP: Subjective: [] Patient seen at bedside for right forearm evaluation due to concern for compression syndrome sp right radial artery cannulation. Patient states that she has good sensation though her right arm is not painful. Objective: []General: Well appearing, NAD. Sitting comfortably in chair. RUE: Right forearm is soft and supple without erythema or edema. Skin wrinkles easily. She is nontender to palpation aside from mild tenderness directly over site of cannulation. She has localized ecchymosis at site of cannulation though no continued bleeding. Patient demonstrates active flexion and extension of elbow, wrist and fingers without pain or difficulty. Assessment: []Right arm pain rule out compression syndrome Plan: []Weight bearing as tolerated. No current concern for compression syndrome, please reach out should further concern arise
[2017-08-23] MEDS: Heparin VIAL(*) 5000 UNITS/ML VIAL (FIVE THOUSAND) SUBCUT SCH (22:03)
[2017-08-24] MEDS: Heparin VIAL(*) 5000 UNITS/ML VIAL (FIVE THOUSAND) SUBCUT SCH ×3 (05:54→21:31)
[2017-08-24 07:05] LABS: Hematocrit 33 % (35-47); Hemoglobin 11.1 g/dl (12.0-16.0); Mean Corpuscular HGB Conc 34 g/dl (31-36); Mean Corpuscular Hemoglobin 29 pg (27-31); Mean Corpuscular Volume 87 fL (80-97); Mean Platelet Volume 7.7 um3 (7.4-10.4); Platelet Count 204 10^3/ul (150-450); Red Blood Count 3.79 10^6/ul (4.0-5.4); Red Cell Distribution Width 15 % (10.5-15); White Blood Count 5.3 10^3/ul (3.5-10.8)
[2017-08-24 07:14] LABS: EGFR Non-African American 65.1 (>60)
[2017-08-24] MEDS: Isosorbide Mononitrate ER TAB* 30 MG PO SCH (08:13)
[2017-08-24] MEDS: CMCS: Rosuvastatin (NF) 5 MG TAB PO SCH (08:13)
[2017-08-24] MEDS: Ticagrelor* 90 MG TAB PO SCH ×2 (08:14→21:03)
[2017-08-24] MEDS: Aspirin 81 mg CHEW TAB* 81 MG TAB.CHEW PO SCH (08:14)
[2017-08-24] MEDS: Potassium Chlor TAB* 20 MEQ TAB.ER PO SCH (08:14)
[2017-08-24] MEDS: Losartan TAB* 25 MG PO SCH (08:15)
[2017-08-24] MEDS: Metoprolol Succinate XL TAB* 25 MG PO SCH ×2 (08:22→09:16)
--- NOTE | 2017-08-24 10:52 | CATH ---
CC: Dr. Maxine Dunaway; Dr. Micki Patel* CARDIAC CATHETERIZATION AND INTERVENTIONAL REPORT: DATE OF PROCEDURE: 08/22/17 INDICATION FOR PROCEDURE: The patient presents with non-ST elevation myocardial infarction with a history of prior stent placements in the LAD and circumflex, now for assessment of coronary anatomy and potential intervention. PROCEDURE: Coronary arteriography, percutaneous balloon angioplasty, and placement of a 2.75 x 24 mm long Synergy drug-eluting stent in the second obtuse marginal branch. The patient was interviewed and examined in the emergency room where the risks and benefits were explained. She understood them and wished to proceed. EQUIPMENT USED FOR THE CASE: The right radial artery was assessed for access and found to be acceptable. 1. Right radial artery sheath, a 6-Hungarian Glidesheath. 2. Diagnostic catheter,a 5-Hungarian TIG4 curve. 3. Exchange wire, a 260 length Davidson curved guidewire. 4. Guiding catheter, a VL 3.5 curved 6-Hungarian guide catheter. 5. Interventional wires included 2 BMW wires in addition to an All Star guidewire exchange length. 6. Additional interventional support equipment, a 150 length SuperCross 90- degree catheter, a 6-Hungarian V3 GuideLiner catheter. 7. PTCA balloons included a 1.5 x 8 mm long Emerge over the wire push, a 2.5 x 8 mm NC Emerge, a 2.0 x 8 mm NC Emerge, and post dilatations with a 3.0 x 12 mm long NC Emerge balloon. Additional catheter included a 2.5 mm x 10 mm AngioSculpt PTCA catheter in addition to a 2.75 x 8 mm long NC Emerge. 8. Stent placed in 3rd OM proximal to ostial area was a 2.75 x 24 mm Synergy drug-eluting stent. MEDICATIONS: Medications given included heparin drip the patient was on preprocedure. A nitroglycerin drip was administered. Additional 2000 units of bolus heparin given. Brilinta 180 mg p.o.; Zofran total of 8 mg; Versed, a total of 1 mg. DESCRIPTION OF PROCEDURE: The patient was brought to the cardiovascular laboratory where a formal time-out was performed. She was prepped and draped in a sterile fashion. The right radial area was anesthetized with 1% lidocaine and a sheath was placed. Diagnostic coronary arteriography was performed utilizing the TIG 4.o catheter. Following this, the decision was made to intervene into the third critically stenosed ostium/proximal area of the third obtuse marginal branch. Guiding views were obtained Utilizing a VL3.5 6 tamazight guide. The patient received additional heparin therapy and Brilinta was given. A guidewire was placed down the body of the circumflex. Second guidewire was attempted to be passed through the subtotally occluded ostial area. This was unsuccessful, as such, additional support using a SuperCross 90- degree angle catheter was utilized. Eventually, the wire was able to be crossed with great difficulty. Balloon angioplasty was attempted with a 1.5 x 8 mm. For additional support, a GuideLiner was utilized with a ventral step-up balloon angioplasty. A 2.5 x 10 mm long AngioSculpt catheter was used for additional dilatation. Following this, further balloon angioplasty and stent placement with a 2.75 x 24 mm long Synergy drug-eluting stent was placed with post deployments made with 2.75 x 8 mm long to high-pressure balloon inflation. At the end of the case, the balloons were removed and the artery was assessed. The guiding catheter was then removed and hemostasis was obtained with a Vasband. RESULTS: CORONARY ARTERIOGRAPHY: A. Left coronary artery. 1. Left main. Widely patent. No significant stenosis. 2. Left anterior descending artery. The left anterior descending artery had mild luminal irregularities seen in its proximal portion. The mid portion had a 50% to 55% calcified area before the second diagonal branch. The artery was then traversed to the apical region without critical stenosis. The stented area in the proximal LAD had mild in-stent restenosis of 20%. 3. Circumflex artery - a dominant vessel supplying a very thin first and second obtuse marginal branch. The first and second obtuse marginal branches were small in caliber and short in nature. The third obtuse marginal branch was a large vessel with a critical 90% proximal/ostial stenosis. A mid segment of haze noted with as much as a 50% narrowing was noted. The continuation of the circumflex after the 3rd OM had a 30% narrowing and supplied multiple obtuse marginal branches and ended in the left-sided PDA. There was mild-to- moderate disease in the distal vessel. B. Right coronary artery. A nondominant vessel supplying multiple RV branches. There was diffuse disease seen throughout the course of this vessel with multiple high-grade stenosis as much as 90%. This appeared to be unchanged compared to prior reports and catheterization. Of note, there was heavy calcification seen within the root of the aorta both in the low root around the ostia without significant compromise to the ostia themselves. INTERVENTION INTO THE THIRD OBTUSE MARGINAL BRANCH: Successful reduction of critical 90% ostial/proximal narrowing with balloon angioplasty and sculpture balloon angioplasty with placement of 2.75 x 24 mm long Synergy drug-eluting stent post dilated to 2.85 mm with TIMI3 flow and approximately 10-20% residual narrowing noted. OVERALL ASSESSMENT: Successful intervention to critically stenosed third obtuse marginal branch as described above. Dual-antiplatelet regimen should be maintained for a minimum of a year's time. Aggressive risk factor management will be needed. Of note, the patient apparently does not tolerate statins due to significant muscle aching and had to have the Crestor decreased to as much as only 5 mg a day. We will review the results of a lipid profile on her and see if she is in guideline range on this low dose. Aggressive other risk factor management including smoking cessation in addition to blood pressure control will be aggressively pursued. The patient ultimately wishes to follow up with Dr. Patel to start seeing a transformer mechanic here in the [place] area. We will help arrange for this as well. [id number]/[facility] #: [id number] LUIS ENRIQUE
[2017-08-24] MEDS: Nicotine Inhaler* 10 MG AMP INH PRN (12:33)
--- NOTE | 2017-08-24 14:28 | PN ---
Subjective Date of Service: 08/24/17 Interval History: Pt feels well. c/o episodes of SOB/anxiety that my be related to Brilinta or nicotine withdrawal Bradycardic at night, also PVC';s noted Objective Active Medications: Acetaminophen (Tylenol Tab*) 650 mg PO Q6H PRN PRN Reason: FEVER/PAIN Aspirin (Aspirin 81 Mg Chew Tab*) 81 mg PO DAILY [facility] Last Admin: 08/24/17 08:14 Dose: 81 mg Device (Nicotine Mouth Piece*) 1 each INH .USE WITH NICOTROL PRN PRN Reason: CRAVING Last Admin: 08/23/17 09:35 Dose: 1 each Famotidine (Pepcid Tab*) 20 mg PO BID PRN PRN Reason: INDIGESTION Last Admin: 08/22/17 14:32 Dose: 20 mg Heparin Sodium (Porcine) (Heparin Vial(*)) 5,000 units SUBCUT Q8HR [facility] Last Admin: 08/24/17 13:25 Dose: 5,000 units Isosorbide Mononitrate (Imdur Er Tab*) 30 mg PO DAILY [facility] Last Admin: 08/24/17 08:13 Dose: 30 mg Losartan Potassium (Cozaar Tab*) 50 mg PO DAILY [facility] Last Admin: 08/24/17 08:15 Dose: 50 mg Metoprolol Succinate (Toprol Xl Tab*) 12.5 mg PO DAILY [facility] Last Admin: 08/24/17 09:16 Dose: 12.5 mg Nicotine (Nicotine Inhaler*) 10 mg INH Q2H PRN PRN Reason: CRAVING Last Admin: 08/24/17 12:33 Dose: 10 mg Nitroglycerin (Nitroglycerin Tab 0.4 Mg*) 0.4 mg SL Q5M PRN PRN Reason: ANGINA Nitroglycerin (Nitroglycerin Tab 0.4 Mg*) 0.4 mg SL Q5M PRN PRN Reason: ANGINA Ondansetron HCl (Zofran Inj*) 4 mg IV Q6H PRN PRN Reason: NAUSEA Potassium Chloride (Klor Con Er Tab*) 20 meq PO DAILY [facility] Last Admin: 08/24/17 08:14 Dose: 20 meq Rosuvastatin Calcium (Crestor (Nf)) 5 mg PO DAILY [facility] PRN Reason: Protocol Last Admin: 08/24/17 08:13 Dose: 5 mg Ticagrelor (Brilinta*) 90 mg PO BID [facility] Last Admin: 08/24/17 08:14 Dose: 90 mg Vital Signs - 8 hr 08/24/17 08/24/17 08/24/17 07:00 07:02 07:47 Temperature 98.1 F Pulse Rate 60 57 Respiratory 21 20 Rate Blood Pressure 102/70 (mmHg) O2 Sat by Pulse 94 94 Oximetry 08/24/17 08/24/17 08/24/17 07:57 08:00 08:01 Temperature Pulse Rate 49 50 Respiratory 15 15 16 Rate Blood Pressure 142/59 (mmHg) O2 Sat by Pulse 94 94 Oximetry 08/24/17 08/24/17 08/24/17 09:00 09:01 10:45 Temperature 97.3 F Pulse Rate 50 51 57 Respiratory 20 22 22 Rate Blood Pressure 119/56 133/34 (mmHg) O2 Sat by Pulse 93 93 97 Oximetry Oxygen Devices in Use Now: None Appearance: 82 yo F in nAD, aAOx3 Eyes: No Scleral Icterus, PERRLA Ears/Nose/Mouth/Throat: NL Teeth, Lips, Gums, Mucous Membranes Moist Neck: NL Appearance and Movements; NL JVP, Trachea Midline Respiratory: Symmetrical Chest Expansion and Respiratory Effort, Clear to Auscultation Cardiovascular: NL Sounds; No Murmurs; No JVD, No Edema Abdominal: NL Sounds; No Tenderness; No Distention, No Hepatosplenomegaly Lymphatic: No Cervical Adenopathy Extremities: No Edema, No Clubbing, Cyanosis Skin: No Nodules or Sclerosis, - - R wrist with ecchymosis Neurological: Alert and Oriented x 3, NL Muscle Strength and Tone Result Diagrams: 08/24/17 06:31 08/24/17 06:31 Additional Lab and Data: Lab Results 08/22/17 08/22/17 08/22/17 Range/Units 12:30 12:30 12:30 WBC 5.3 (3.5-10.8) 10^3/ul RBC 4.05 (4.0-5.4) 10^6/ul Hgb 11.8 L (12.0-16.0) g/dl Hct 35 (35-47) % MCV 86 (80-97) fL MCH 29 (27-31) pg MCHC 34 (31-36) g/dl RDW 15 (10.5-15) % Plt Count 217 (150-450) 10^3/ul MPV 7.4 (7.4-10.4) um3 Neut % (Auto) 77.2 (38-83) % Lymph % (Auto) 15.2 L (25-47) % [place] % (Auto) 6.4 (0-7) % Eos % (Auto) 0.6 (0-6) % Baso % (Auto) 0.6 (0-2) % Absolute Neuts (auto) 4.1 (1.5-7.7) 10^3/ul Absolute Lymphs (auto) 0.8 L (1.0-4.8) 10^3/ul Absolute Monos (auto) 0.3 (0-0.8) 10^3/ul Absolute Eos (auto) 0 (0-0.6) 10^3/ul Absolute Basos (auto) 0 (0-0.2) 10^3/ul Absolute Nucleated RBC 0 10^3/ul Nucleated RBC % 0.2 INR (Anticoag Therapy) (0.77-1.02) APTT (26.0-36.3) seconds Sodium 138 L (139-145) mmol/L Potassium 4.2 (3.5-5.0) mmol/L Chloride 106 (101-111) mmol/L Carbon Dioxide 22 (22-32) mmol/L Anion Gap 10 (2-11) mmol/L BUN 23 (6-24) mg/dL Creatinine 0.94 (0.51-0.95) mg/dL Est GFR ( Amer) 73.5 (>60) Est GFR (Non-Af Amer) 57.2 (>60) BUN/Creatinine Ratio 24.5 H (8-20) Glucose 104 H (70-100) mg/dL Hemoglobin A1c (4.0-5.6) % Lactic Acid (0.5-2.0) mmol/L Calcium 9.4 (8.6-10.3) mg/dL Magnesium 2.1 (1.9-2.7) mg/dL Total Bilirubin 0.30 (0.2-1.0) mg/dL AST 21 (13-39) U/L ALT 13 (7-52) U/L Alkaline Phosphatase 66 (34-104) U/L Total Creatine Kinase 88 (10-223) U/L CK-MB (CK-2) 10.0 H (0.6-6.3) ng/mL Troponin I 0.58 H* (<0.04) ng/mL B-Natriuretic Peptide 132 H ( - 100) pg/mL Total Protein 7.5 (6.4-8.9) g/dL Albumin 4.0 (3.2-5.2) g/dL Globulin 3.5 (2-4) g/dL Albumin/Globulin Ratio 1.1 (1-3) TSH (0.34-5.60) mcIU/mL 08/22/17 08/22/17 08/22/17 Range/Units 12:30 12:30 12:30 WBC (3.5-10.8) 10^3/ul RBC (4.0-5.4) 10^6/ul Hgb (12.0-16.0) g/dl Hct (35-47) % MCV (80-97) fL MCH (27-31) pg MCHC (31-36) g/dl RDW (10.5-15) % Plt Count (150-450) 10^3/ul MPV (7.4-10.4) um3 Neut % (Auto) (38-83) % Lymph % (Auto) (25-47) % [place] % (Auto) (0-7) % Eos % (Auto) (0-6) % Baso % (Auto) (0-2) % Absolute Neuts (auto) (1.5-7.7) 10^3/ul Absolute Lymphs (auto) (1.0-4.8) 10^3/ul Absolute Monos (auto) (0-0.8) 10^3/ul Absolute Eos (auto) (0-0.6) 10^3/ul Absolute Basos (auto) (0-0.2) 10^3/ul Absolute Nucleated RBC 10^3/ul Nucleated RBC % INR (Anticoag Therapy) 0.86 (0.77-1.02) APTT 27.3 (26.0-36.3) seconds Sodium (139-145) mmol/L Potassium (3.5-5.0) mmol/L Chloride (101-111) mmol/L Carbon Dioxide (22-32) mmol/L Anion Gap (2-11) mmol/L BUN (6-24) mg/dL Creatinine (0.51-0.95) mg/dL Est GFR ( Amer) (>60) Est GFR (Non-Af Amer) (>60) BUN/Creatinine Ratio (8-20) Glucose (70-100) mg/dL Hemoglobin A1c (4.0-5.6) % Lactic Acid 1.0 (0.5-2.0) mmol/L Calcium (8.6-10.3) mg/dL Magnesium (1.9-2.7) mg/dL Total Bilirubin (0.2-1.0) mg/dL AST (13-39) U/L ALT (7-52) U/L Alkaline Phosphatase (34-104) U/L Total Creatine Kinase (10-223) U/L CK-MB (CK-2) (0.6-6.3) ng/mL Troponin I (<0.04) ng/mL B-Natriuretic Peptide ( - 100) pg/mL Total Protein (6.4-8.9) g/dL Albumin (3.2-5.2) g/dL Globulin (2-4) g/dL Albumin/Globulin Ratio (1-3) TSH 6.80 H (0.34-5.60) mcIU/mL 08/22/17 Range/Units 12:30 WBC (3.5-10.8) 10^3/ul RBC (4.0-5.4) 10^6/ul Hgb (12.0-16.0) g/dl Hct (35-47) % MCV (80-97) fL MCH (27-31) pg MCHC (31-36) g/dl RDW (10.5-15) % Plt Count (150-450) 10^3/ul MPV (7.4-10.4) um3 Neut % (Auto) (38-83) % Lymph % (Auto) (25-47) % [place] % (Auto) (0-7) % Eos % (Auto) (0-6) % Baso % (Auto) (0-2) % Absolute Neuts (auto) (1.5-7.7) 10^3/ul Absolute Lymphs (auto) (1.0-4.8) 10^3/ul Absolute Monos (auto) (0-0.8) 10^3/ul Absolute Eos (auto) (0-0.6) 10^3/ul Absolute Basos (auto) (0-0.2) 10^3/ul Absolute Nucleated RBC 10^3/ul Nucleated RBC % INR (Anticoag Therapy) (0.77-1.02) APTT (26.0-36.3) seconds Sodium (139-145) mmol/L Potassium (3.5-5.0) mmol/L Chloride (101-111) mmol/L Carbon Dioxide (22-32) mmol/L Anion Gap (2-11) mmol/L BUN (6-24) mg/dL Creatinine (0.51-0.95) mg/dL Est GFR ( Amer) (>60) Est GFR (Non-Af Amer) (>60) BUN/Creatinine Ratio (8-20) Glucose (70-100) mg/dL Hemoglobin A1c 6.3 H (4.0-5.6) % Lactic Acid (0.5-2.0) mmol/L Calcium (8.6-10.3) mg/dL Magnesium (1.9-2.7) mg/dL Total Bilirubin (0.2-1.0) mg/dL AST (13-39) U/L ALT (7-52) U/L Alkaline Phosphatase (34-104) U/L Total Creatine Kinase (10-223) U/L CK-MB (CK-2) (0.6-6.3) ng/mL Troponin I (<0.04) ng/mL B-Natriuretic Peptide ( - 100) pg/mL Total Protein (6.4-8.9) g/dL Albumin (3.2-5.2) g/dL Globulin (2-4) g/dL Albumin/Globulin Ratio (1-3) TSH (0.34-5.60) mcIU/mL Microbiology and Other Data: Microbiology 08/22/17 16:15 Nasal Screen MRSA (PCR)([facility]) - Final Nasal Mrsa Not Detected Assess/Plan/Problems-Billing Assessment: 82 yo F with h/o CAD, presented with NSTEMI. H/o adenocarcinoma of stomach, HTN, CAD (stents in 2012) - Patient Problems (1) NSTEMI (non-ST elevated myocardial infarction) Comment: s/p stent x 1 on 06/24/17 cont ASA, Brilinta, lopressor PVC's noted (2) HTN (hypertension) Comment: controlled with imdur, lopressor(does decreased today due to bradycardia), losartan. holding Norvasc (3) Dyslipidemia Comment: LDL 56, cont rosuvastatin (4) DVT prophylaxis Comment: heparin sc Status and Disposition: Inpatient, plan to d/c tomorrow
[2017-08-25] MEDS: Heparin VIAL(*) 5000 UNITS/ML VIAL (FIVE THOUSAND) SUBCUT SCH (06:58)
[2017-08-25] MEDS: Aspirin 81 mg CHEW TAB* 81 MG TAB.CHEW PO SCH (09:01)
[2017-08-25] MEDS: Ticagrelor* 90 MG TAB PO SCH (09:01)
[2017-08-25] MEDS: Isosorbide Mononitrate ER TAB* 30 MG PO SCH (09:01)
[2017-08-25] MEDS: Losartan TAB* 25 MG PO SCH (09:01)
[2017-08-25] MEDS: Potassium Chlor TAB* 20 MEQ TAB.ER PO SCH (09:01)
[2017-08-25] MEDS: Metoprolol Succinate XL TAB* 25 MG PO SCH (09:02)
[2017-08-25] MEDS: CMCS: Rosuvastatin (NF) 5 MG TAB PO SCH (09:03)
[2017-08-25 11:29] VITALS: BP 142/97
--- NOTE | 2017-08-25 13:09 | DS ---
CC: Dr. Meneses; Dr. Patel; Dr. Dunaway. DISCHARGE SUMMARY: DATE OF ADMISSION: 08/22/17 DATE OF DISCHARGE: 08/25/17 PRIMARY CARE PROVIDER: Dr. Maxine Dunaway MD DISCHARGE DIAGNOSIS: Non-ST elevation myocardial infarction, status post cardiac catheterization done by Dr. Meneses on 08/22/17 and stent placement into critically stenosed third obtuse marginal branch. SECONDARY DIAGNOSES: 1. History of smoking. 2. Hypertension. 3. Dyslipidemia. 4. Carotid disease in the past. 5. History of anxiety with panic attacks. 6. CVA. 7. History of gastric cancer. MEDICATIONS AT DISCHARGE: Include: 1. Aspirin 81 mg daily. 2. Vitamin D3 5000 units daily. 3. Vitamin B12 100 mcg daily. 4. Pepcid 20 mg b.i.d. 5. Ferrex complex 150 mg daily. 6. Imdur 30 mg daily. 7. Cozaar 50 mg daily. 8. Metoprolol succinate 12.5 mg daily. 9. Nitroglycerin 0.4 mg 1 tablet sublingually p.r.n. chest pain. 10. Potassium chloride 20 mEq daily. 11. Crestor 5 mg daily. 12. Brilinta 90 mg b.i.d. The patient is dispensed a month worth of prescription of Brilinta to go home with. LABORATORY DATA AND STUDIES PERFORMED DURING THE HOSPITAL STAY: Include: On 08/24/17: White blood cell count 4.3, hemoglobin 11.1, hematocrit of 33, and platelets of 204. On 08/24/17: Sodium of 140, potassium 4.2, chloride 110, carbon dioxide 23, BUN 19, creatinine 0.84. The patient's troponin peaked with level of 11.2 on . Lipid profile showed triglycerides of 97, cholesterol total of 113, LDL of 56, HDL of 38. TSH was noted to be slightly elevated at 6.8 on 08/22/17. Portable chest x-ray obtained on admission, impression: "No evidence of acute disease." CONSULTANTS DURING THE HOSPITAL STAY: Dr. Patel and Dr. Meneses from Cardiology. PROCEDURES PERFORMED: Cardiac catheterization performed by Dr. Meneses on and assessment from the procedure: "Successful intervention to critically stenosed third obtuse marginal branch as described above. Dual antiplatelet regimen should be maintained for a minimum 1 one year time. Aggressive risk factor management will be needed. Of note, the patient apparently does not tolerate statins due to significant muscle aching and had to have Crestor decreased to as much as only 5 mg a day. We will review the results of her lipid profile on her and see if she is at a guideline range on this low dose. Aggressive other risk management including smoking cessation in addition to blood pressure control will be aggressively pursued. The patient adamantly wishes to follow up with Dr. Patel, to start seeing a duct layer here in [facility]." HOSPITAL COURSE: Kaylin Garsia is an 82-year-old female who has a history of dyslipidemia, hypertension and heart disease in the past, presented to the hospital complaining of chest pain on 08/22/17. The patient was diagnosed with unstable angina and taken to the blood bank laboratory technician by Dr. Meneses. A stent was placed in the obtuse marginal branch. The patient postoperatively did very well. She developed an ecchymotic area on her right wrist and that was evaluated by Dr. Cintron from Orthopedic Surgery. There were no further recommendations by Dr. Cintron and later on the patient did very well. She does have a slight ecchymotic area by the time of discharge on her right wrist. The patient ambulated down the pierre without any symptoms of chest pain prior to discharge for approximately 24 hours. She does have an episode of shortness of breath and anxiety when she takes Brilinta, which was alleviated by caffeinated beverage. The patient is going to be discharged home with recommendation to follow up with Dr. Meneses on 08/27/17 at 3:20 p.m. The patient is also to follow up with Dr. Dunaway in 4 to 7 days. Eventually, Dr. Meneses will arrange for the patient to follow up with Dr. Patel later on. PHYSICAL EXAMINATION AT THE TIME OF DISCHARGE: Blood pressure is 133/61, heart rate of 56 and regular, respiratory rate 16, oxygen saturation 98% on room air, temperature 97.4. General: The patient is a very pleasant 82-year-old female who is in no acute distress, alert, awake and oriented x3. HEENT: Head: Atraumatic, normocephalic. Eyes: Pupils are equal, reactive to light and accommodation. Oropharynx clear. Mucosa moist. Neck: Supple. No JVD. No bruits bilaterally. Cardiovascular: Regular rate and rhythm. No murmur. Respiratory: Clear to auscultation bilaterally. Abdomen: Soft, nontender. Bowel sounds are present in all quadrants. Extremities: There is no edema. Pulses +2 bilaterally. No clubbing or cyanosis. Neuro Evaluation: Speech is clear. Cranial nerves II through XII grossly intact. Motor strength is 5/5 bilaterally. Please note that this is a short summary of the patient's hospitalization. Please refer to further medical records for details. Post cardiac catheterization specific instructions were given to the patient with her discharge summary included in her discharge recommendations. [id number] #: [id number] MTDD
== END 2017-08-25 11:31 | disposition home or self-care (01) | DRG 247 ==
LOC: ED 11:22 → ICU 13:36 → MEDTELE 08-24 10:46
PROVIDERS: ADMIT Internal Medicine; ATTEND Internal Medicine
PROC: B2111ZZ Fluoroscopy of Multiple Coronary Arteries using Low Osmolar Contrast (ICD-10-PCS; 2017-08-22)
PROC: 027034Z Dilation of Coronary Artery, One Artery with Drug-eluting Intraluminal Device, Percutaneous Approach (ICD-10-PCS; principal; 2017-08-22 15:00)
DX: I21.4 Non-ST elevation (NSTEMI) myocardial infarction (principal); I10 Essential (primary) hypertension; E78.5 Hyperlipidemia, unspecified; F41.9 Anxiety disorder, unspecified; F17.210 Nicotine dependence, cigarettes, uncomplicated; I25.110 Atherosclerotic heart disease of native coronary artery with unstable angina pectoris; K21.9 Gastro-esophageal reflux disease without esophagitis; I73.9 Peripheral vascular disease, unspecified; M19.90 Unspecified osteoarthritis, unspecified site; J44.9 Chronic obstructive pulmonary disease, unspecified; G35 Multiple sclerosis; I35.0 Nonrheumatic aortic (valve) stenosis; I25.2 Old myocardial infarction; Z95.5 Presence of coronary angioplasty implant and graft; Z85.028 Personal history of other malignant neoplasm of stomach; Z90.49 Acquired absence of other specified parts of digestive tract; Z88.2 Allergy status to sulfonamides; Z88.8 Allergy status to other drugs, medicaments and biological substances; Z83.3 Family history of diabetes mellitus; Z86.73 Personal history of transient ischemic attack (TIA), and cerebral infarction without residual deficits; Z79.82 Long term (current) use of aspirin; Z80.51 Family history of malignant neoplasm of kidney; Z80.52 Family history of malignant neoplasm of bladder; Z82.49 Family history of ischemic heart disease and other diseases of the circulatory system; Z72.89 Other problems related to lifestyle; R58 Hemorrhage, not elsewhere classified; R06.02 Shortness of breath; T45.525A Adverse effect of antithrombotic drugs, initial encounter; Y92.239 Unspecified place in hospital as the place of occurrence of the external cause; M79.89 Other specified soft tissue disorders; R00.1 Bradycardia, unspecified
CPT/HCPCS: 36415; 71045; 80048; 80053; 80061; 81003; 81015; 82272; 82550; 82553; 83036; 83605; 83735; 83880; 84443; 84484; 85025; 85027; 85610; 85730; 87077; 87086; 87186; 87641; 93005; 93306; 93454; 99156; 99157; 99285; A9270-GY; C1725; C1769; C1876; C1887; C9600-LC; J1644; J2250; J2405; J3010; J3490

== ENCOUNTER 2023-11-02 12:43 | Observation (INO) ==
[2023-11-02 13:25] LABS: ABS Basophils 0.1 10^3/uL (0.0-0.1); ABS Lymphocytes 0.7 10^3/uL (1.0-4.8); ABS Monocytes 0.2 10^3/uL (0.0-0.9); ABS Neutrophils 9.7 10^3/uL (1.5-7.6); Eosinophil % 0.1 %; Hematocrit 34.6 % (35-45); Hemoglobin 11.4 g/dL (11.5-14.3); Lymphocyte % 6.6 %; Mean Corpuscular Hemoglobin 29.5 pg (27-33); Mean Corpuscular Volume 89.6 fL (80-97); Mean Platelet Volume 7.1 fL (7.5-11.2); Platelet Count 293 10^3/uL (150-450); Red Blood Count 3.87 10^6/uL (3.63-4.92); Red Cell Distribution Width 13.8 % (12-17); White Blood Count 10.7 10^3/uL (3.8-11.8)
[2023-11-02 13:31] LABS: INR 0.94 (0.83-1.13)
[2023-11-02 14:12] LABS: Albumin 4.1 g/dL (3.2-5.2); Albumin/Globulin Ratio 1.3 (1-3); Calcium 9.2 mg/dL (8.6-10.3); Creatinine, Serum 1.01 mg/dL (0.51-0.95); Globulin 3.1 g/dL (2-4); Magnesium 2.2 mg/dL (1.9-2.7); Potassium 3.9 mmol/L (3.5-5.0); Total Bilirubin 0.5 mg/dL (0.2-1.0); Total Protein 7.2 g/dL (6.4-8.9); eGFR CKD-EPI 53.9 (>60)
[2023-11-02 14:53] LABS: High Sensitivity Troponin 1 Hr 980 pg/mL (<15)
[2023-11-02] MEDS: Heparin 5000 UNITS/ML 1 mL VIAL IV SCH (15:18)
[2023-11-02] MEDS: Heparin DRIP 25,000 UNITS BAG 25,000 UNITS/250 ML BAG IV SCH (15:20)
[2023-11-02 15:33] LABS: ABS Lymphocytes 0.7 10^3/uL (1.0-4.8); ABS Monocytes 0.2 10^3/uL (0.0-0.9); ABS Neutrophils 8.8 10^3/uL (1.5-7.6); Hematocrit 33.6 % (35-45); Hemoglobin 11.5 g/dL (11.5-14.3); Lymphocyte % 7.3 %; Mean Corpuscular Hemoglobin 30.7 pg (27-33); Mean Corpuscular Hgb Conc 34.1 g/dL (31-36); Mean Corpuscular Volume 89.9 fL (80-97); Mean Platelet Volume 7.1 fL (7.5-11.2); Platelet Count 275 10^3/uL (150-450); Red Blood Count 3.73 10^6/uL (3.63-4.92); Red Cell Distribution Width 13.9 % (12-17); White Blood Count 9.7 10^3/uL (3.8-11.8)
[2023-11-02 16:13] LABS: Creatinine, Serum 1.01 mg/dL (0.51-0.95); eGFR CKD-EPI 53.9 (>60)
[2023-11-02] MEDS ORDERED: Morphine 2 MG/ML SYRINGE IV PRN (17:05)
[2023-11-02 17:59] LABS: High Sensitivity Troponin 3 Hr 966 pg/mL (<15)
[2023-11-02 18:23] LABS: HDL Cholesterol 56.4 mg/dL
[2023-11-02] MEDS: Mometasone/Formoter 200/5 MDI INH SCH (20:12)
[2023-11-02] MEDS ORDERED: Albuterol HFA INHALER 8 gm MDI INH PRN (23:00)
[2023-11-03 04:38] LABS: ABS Eosinophils 0.1 10^3/uL (0.0-0.5); ABS Lymphocytes 1.8 10^3/uL (1.0-4.8); ABS Monocytes 0.5 10^3/uL (0.0-0.9); ABS Neutrophils 6.4 10^3/uL (1.5-7.6); Eosinophil % 0.8 %; Hematocrit 32.4 % (35-45); Lymphocyte % 20.3 %; Mean Corpuscular Hemoglobin 30.2 pg (27-33); Mean Corpuscular Hgb Conc 33.9 g/dL (31-36); Mean Corpuscular Volume 88.9 fL (80-97); Mean Platelet Volume 7.2 fL (7.5-11.2); Platelet Count 276 10^3/uL (150-450); Red Blood Count 3.64 10^6/uL (3.63-4.92); Red Cell Distribution Width 13.8 % (12-17); White Blood Count 8.8 10^3/uL (3.8-11.8)
[2023-11-03] MEDS ORDERED: Isosorbide Mononit ER 30mg TAB PO SCH (09:00)
[2023-11-03] MEDS: Isosorbide Mononit ER 30mg TAB PO SCH (10:05)
[2023-11-03] MEDS: Sulfur Hexaflouride MICROSPHR 25 MG VIAL IV ONE (12:23)
[2023-11-04 06:59] LABS: ABS Eosinophils 0.2 10^3/uL (0.0-0.5); ABS Lymphocytes 1.5 10^3/uL (1.0-4.8); ABS Monocytes 0.4 10^3/uL (0.0-0.9); ABS Neutrophils 5.2 10^3/uL (1.5-7.6); Eosinophil % 2.9 %; Hematocrit 35.2 % (35-45); Lymphocyte % 20.4 %; Mean Corpuscular Hemoglobin 30.7 pg (27-33); Mean Corpuscular Volume 90.4 fL (80-97); Mean Platelet Volume 7.3 fL (7.5-11.2); Nucleated Red Blood Cells % 0.1 %/100WBC (0.0-0.8); Platelet Count 283 10^3/uL (150-450); Red Cell Distribution Width 13.9 % (12-17); White Blood Count 7.4 10^3/uL (3.8-11.8)
[2023-11-04 07:18] LABS: Calcium 8.7 mg/dL (8.6-10.3); Creatinine, Serum 1.11 mg/dL (0.51-0.95); Potassium 3.4 mmol/L (3.5-5.0); eGFR CKD-EPI 48.1 (>60)
[2023-11-04] MEDS: Potassium Chlor 20 meq TAB.ER PO ONE (09:50)
[2023-11-04] MEDS ORDERED: Sulfur Hexaflouride MICROSPHR 25 MG VIAL ONE (11:35)
[2023-11-04] MEDS: Calcium Carb (TUMS) 500 mg CHEW TAB PO PRN (14:46)
[2023-11-05 06:25] LABS: ABS Eosinophils 0.3 10^3/uL (0.0-0.5); ABS Lymphocytes 1.2 10^3/uL (1.0-4.8); ABS Monocytes 0.4 10^3/uL (0.0-0.9); Eosinophil % 3.9 %; Hematocrit 34.7 % (35-45); Hemoglobin 11.6 g/dL (11.5-14.3); Lymphocyte % 17.3 %; Mean Corpuscular Hemoglobin 30.1 pg (27-33); Mean Corpuscular Hgb Conc 33.5 g/dL (31-36); Mean Corpuscular Volume 89.9 fL (80-97); Mean Platelet Volume 7.1 fL (7.5-11.2); Platelet Count 273 10^3/uL (150-450); Red Blood Count 3.86 10^6/uL (3.63-4.92); Red Cell Distribution Width 13.9 % (12-17); White Blood Count 6.9 10^3/uL (3.8-11.8)
[2023-11-05 06:55] LABS: Calcium 8.9 mg/dL (8.6-10.3); Creatinine, Serum 1.1 mg/dL (0.51-0.95); Potassium 3.9 mmol/L (3.5-5.0); eGFR CKD-EPI 48.6 (>60)
[2023-11-05] MEDS ORDERED: Regadenoson 0.4 MG/5 ML SYRINGE ONE (08:04)
[2023-11-05] MEDS ORDERED: Aminophylline 25 MG/ML VIAL ONE (08:04)
[2023-11-05 10:09] VITALS: BP 155/65
== END 2023-11-05 13:20 | disposition home or self-care (01) ==
LOC: ED 12:43 → EDHOLD 12:43 → SUATTDRO 16:27 → MEDTELE 20:01
PROVIDERS: ADMIT Internal Medicine; ATTEND Family Medicine